=== PATIENT | female | born 1995 | race African-American/Black ===

== ENCOUNTER 2016-09-28 21:23 | Observation (INO) | payer BC ==
[~2016-09-28] VITALS: Ht 165.1 cm; Wt 115.8 kg
[2016-09-28] MEDS ORDERED: IV NORMAL SALINE 1000ML BAG 1,000 ML IV SCH (21:35)
[2016-09-28] MEDS ORDERED: fentaNYL PF VIAL 100 MCG/2 ML VIAL IV PRN (21:45)
[2016-09-28 21:48] LABS: BASO % 0 % (0-3); EOS % 2 % (0-3); HEMATOCRIT 34.6 % (36.0-47.0); HEMOGLOBIN 10.7 g/dL (12.0-15.5); LYMPH # 0.9 x10^3/uL (1.0-4.8); LYMPH % 6 % (24-48); MEAN CORPUSCULAR HEMOGLOBIN 23 pg (25-35); MEAN CORPUSCULAR HGB CONC 31 g/dL (31-37); MEAN CORPUSCULAR VOLUME 75 fL (79-100); MONO % 4 % (0-9); NEUT % 88 % (31-73); PLATELET COUNT 271 x10^3/uL (140-400); RED BLOOD COUNT 4.64 x10^6/uL (3.50-5.40); RED CELL DISTRIBUTION WIDTH 20.4 % (11.5-14.5); WHITE BLOOD COUNT 15.4 x10^3/uL (4.0-11.0)
--- NOTE | 2016-09-28 21:48 | PHYS DOC ---
Past Medical History Past Medical History: No Pertinent History Additional Past Medical Histor: none Past Surgical History: No Surgical History Additional Information: Non smoker Social History Narrative: Visiting from [place], [place] Adult General Chief Complaint Chief Complaint: SYNCOPE HPI HPI Patient is a 21 year old female who presents with abdominal pain and syncopal episode. She is here traveling from [facility] where she drove from on Friday for a in [place]. She noted a little shortness of air yesterday. No fever or cough. No chest pain. Today at 2000 PM she developed abdominal pain. It is in her right lower quadrant. She had 2 episodes of vomiting. Tonight when she was vomiting, she "passed out". She in fact just slid to the floor onto her bottom. Did not strike her head, no loss of consciousness. No injury with resulting from that event. He states it does hurt to breathe. She is on control pills does not smoke tobacco however had recent travel. Review of Systems Review of Systems Constitutional: Denies fever or chills Eyes: Denies change in visual acuity, redness, or eye pain HENT: Denies nasal congestion or sore throat Respiratory: Denies cough but some shortness of breath Cardiovascular: No chest pain; syncopal episode post vomiting. No dizziness. GI: See HPI. No bloody stools or diarrhea : Denies dysuria or hematuria Musculoskeletal: Denies back pain or joint pain. No neck pain. Integument: Denies rash or skin lesions Neurologic: Denies headache, focal weakness or sensory changes. No dizziness, no numbness/tingling or weakness of extremities. Family History Family History Laboratory Tests Test 09/28/16 21:06 09/28/16 21:33 09/28/16 21:47 Bedside Urine HCG, Qualitative Hcg negative White Blood Count 15.4 x10^3/uL Red Blood Count 4.64 x10^6/uL Hemoglobin 10.7 g/dL Hematocrit 34.6 % Mean Corpuscular Volume 75 fL Mean Corpuscular Hemoglobin 23 pg Mean Corpuscular Hemoglobin Concent 31 g/dL Red Cell Distribution Width 20.4 % Platelet Count 271 x10^3/uL Neutrophils (%) (Auto) 88 % Lymphocytes (%) (Auto) 6 % Monocytes (%) (Auto) 4 % Eosinophils (%) (Auto) 2 % Basophils (%) (Auto) 0 % Neutrophils # (Auto) 13.6 x10^3uL Lymphocytes # (Auto) 0.9 x10^3/uL Monocytes # (Auto) 0.7 x10^3/uL Eosinophils # (Auto) 0.2 x10^3/uL Basophils # (Auto) 0.0 x10^3/uL Segmented Neutrophils % 69 % Band Neutrophils % 11 % Lymphocytes % 12 % Monocytes % 5 % Eosinophils % 2 % Basophils % 1 % Platelet Estimate Adequate Hypochromasia Slight Poikilocytosis Slight Anisocytosis Slight Microcytosis Slight Ovalocytes Few D-Dimer (Melissa) 0.29 ug/mlFEU Sodium Level 140 mmol/L Potassium Level 4.2 mmol/L Chloride Level 104 mmol/L Carbon Dioxide Level 26 mmol/L Anion Gap 10 Blood Urea Nitrogen 11 mg/dL Creatinine 1.3 mg/dL Estimated GFR (Cockcroft-Gault) 50.8 BUN/Creatinine Ratio 8 Glucose Level 134 mg/dL Calcium Level 8.8 mg/dL Total Bilirubin 0.2 mg/dL Aspartate Amino Transf (AST/SGOT) 18 U/L Alanine Aminotransferase (ALT/SGPT) 17 U/L Alkaline Phosphatase 81 U/L Creatine Kinase 239 U/L Creatine Kinase MB (Mass) < 0.5 ng/mL Creatine Kinase MB Relative Index 0.2 % Troponin I Quantitative < 0.017 ng/mL Total Protein 7.8 g/dL Albumin 3.2 g/dL Albumin/Globulin Ratio 0.7 Lipase 79 U/L Urine Collection Type Unknown Urine Color Yellow Urine Clarity Clear Urine pH 5.0 Urine Specific [place] 1.020 Urine Protein Negative mg/dL Urine Glucose (UA) Negative mg/dL Urine Ketones (Stick) Negative mg/dL Urine Blood Negative Urine Nitrite Negative Urine Bilirubin Negative Urine Urobilinogen Dipstick 0.2 mg/dL Urine Leukocyte Esterase Small Urine RBC 0 /HPF Urine WBC 1-4 /HPF Urine Squamous Epithelial Cells Few /LPF Urine Bacteria Few /HPF Urine Mucus Marked /LPF Current Medications Medications (Trade) Dose Ordered Sig/Mason Route PRN Reason Start Time Stop Time Status Last Admin Dose Admin Fentanyl Citrate (Fentanyl 2ml Vial) 50 mcg PRN Q15MIN PRN IV PAIN GREATER THAN 3/10 09/28/16 21:45 09/29/16 21:44 09/28/16 22:11 50 MCG Sodium Chloride 1,000 ml @ 1,000 mls/hr Q1H IV 09/28/16 21:35 09/28/16 22:34 DC 09/28/16 22:10 1,000 MLS/HR Ondansetron HCl (Zofran) 4 mg 1X ONCE IV 09/28/16 22:00 09/28/16 22:01 DC 09/28/16 22:10 4 MG Iohexol (Omnipaque 300 Mg/ml) 75 ml 1X ONCE IV 09/28/16 23:00 09/28/16 23:01 DC 09/28/16 22:30 75 ML Info (Do NOT chart on this entry -- for MONITORING) 1 each PRN DAILY PRN MC SEE COMMENTS 09/28/16 22:30 09/30/16 22:29 Current Medications Current Medications Current Medications Medications (Trade) Dose Ordered Sig/Mason Start Time Stop Time Status Last Admin Dose Admin Fentanyl Citrate (Fentanyl 2ml Vial) 50 mcg PRN Q15MIN PRN 09/28/16 21:45 09/29/16 21:44 09/28/16 22:11 50 MCG Info (Do NOT chart on this entry -- for MONITORING) 1 each PRN DAILY PRN 09/28/16 22:30 09/30/16 22:29 Iohexol (Omnipaque 300 Mg/ml) 75 ml 1X ONCE 09/28/16 23:00 09/28/16 23:01 AL 09/28/16 22:30 75 ML Ondansetron HCl (Zofran) 4 mg 1X ONCE 09/28/16 22:00 09/28/16 22:01 AL 09/28/16 22:10 4 MG Sodium Chloride 1,000 ml @ 1,000 mls/hr Q1H 09/28/16 21:35 09/28/16 22:34 AL 09/28/16 22:10 1,000 MLS/HR Allergies Allergies Allergies Coded Allergies Type Severity Reaction Last Updated Verified Penicillins Allergy Intermediate 09/28/16 Yes Physical Exam Physical Exam Constitutional: Well developed, well nourished, no acute distress, non-toxic appearance. HENT: Normocephalic, atraumatic, bilateral external ears normal, oropharynx moist, no oral exudates, nose normal. No injury to scalp. Eyes: PERRLA, EOMI, conjunctiva normal, no discharge. Neck: Normal range of motion, no tenderness, supple, no stridor. Non tender to palpation of cervical spine; no step off or crepitance. Cardiovascular:Heart rate regular rhythm, no murmur Lungs & Thorax: Bilateral breath sounds clear to auscultation Abdomen: Bowel sounds normal, soft, tenderness in right lower quadrant, no masses, no pulsatile masses, no rebound or guarding. Skin: Warm, dry, no erythema, no rash. Back: No tenderness, no CVA tenderness. Extremities: No tenderness, no cyanosis, no clubbing, ROM intact, no edema. Neurologic: Alert and oriented X 3, normal motor function, normal sensory function, no focal deficits noted. Psychologic: Affect normal, judgement normal, mood normal. Current Patient Data Vital Signs Vital Signs Date Time Temp Pulse Resp B/P (MAP) Pulse Ox O2 Delivery O2 Flow Rate FiO2 09/28/16 22:11 20 100 09/28/16 21:37 98.1 92 175/107 (129) Room Air 98.1 Lab Values Laboratory Tests Test 09/28/16 21:06 09/28/16 21:33 09/28/16 21:47 POC Urine HCG, Qualitative Hcg negative (Negative) White Blood Count 15.4 x10^3/uL (4.0-11.0) H Red Blood Count 4.64 x10^6/uL (3.50-5.40) Hemoglobin 10.7 g/dL (12.0-15.5) L Hematocrit 34.6 % (36.0-47.0) L Mean Corpuscular Volume 75 fL (79-100) L Mean Corpuscular Hemoglobin 23 pg (25-35) L Mean Corpuscular Hemoglobin Concent 31 g/dL (31-37) Red Cell Distribution Width 20.4 % (11.5-14.5) H Platelet Count 271 x10^3/uL (140-400) Neutrophils (%) (Auto) 88 % (31-73) H Lymphocytes (%) (Auto) 6 % (24-48) L Monocytes (%) (Auto) 4 % (0-9) Eosinophils (%) (Auto) 2 % (0-3) Basophils (%) (Auto) 0 % (0-3) Neutrophils # (Auto) 13.6 x10^3uL (1.8-7.7) H Lymphocytes # (Auto) 0.9 x10^3/uL (1.0-4.8) L Monocytes # (Auto) 0.7 x10^3/uL (0.0-1.1) Eosinophils # (Auto) 0.2 x10^3/uL (0.0-0.7) Basophils # (Auto) 0.0 x10^3/uL (0.0-0.2) Segmented Neutrophils % 69 % (35-66) H Band Neutrophils % 11 % (0-9) H Lymphocytes % 12 % (24-48) L Monocytes % 5 % (0-10) Eosinophils % 2 % (0-5) Basophils % 1 % (0-3) Platelet Estimate Adequate (ADEQUATE) Hypochromasia Slight Poikilocytosis Slight Anisocytosis Slight Microcytosis Slight Ovalocytes Few D-Dimer (Melissa) 0.29 ug/mlFEU (0.00-0.50) Sodium Level 140 mmol/L (136-145) Potassium Level 4.2 mmol/L (3.5-5.1) Chloride Level 104 mmol/L (98-107) Carbon Dioxide Level 26 mmol/L (21-32) Anion Gap 10 (6-14) Blood Urea Nitrogen 11 mg/dL (7-20) Creatinine 1.3 mg/dL (0.6-1.0) H Estimated GFR (Cockcroft-Gault) 50.8 BUN/Creatinine Ratio 8 (6-20) Glucose Level 134 mg/dL (70-99) H Calcium Level 8.8 mg/dL (8.5-10.1) Total Bilirubin 0.2 mg/dL (0.2-1.0) Aspartate Amino Transferase (AST) 18 U/L (15-37) Alanine Aminotransferase (ALT) 17 U/L (14-59) Alkaline Phosphatase 81 U/L (46-116) Creatine Kinase 239 U/L (26-192) H Creatine Kinase MB (Mass) < 0.5 ng/mL (0.0-3.6) Creatine Kinase MB Relative Index 0.2 % (0-4) Troponin I Quantitative < 0.017 ng/mL (0.000-0.055) Total Protein 7.8 g/dL (6.4-8.2) Albumin 3.2 g/dL (3.4-5.0) L Albumin/Globulin Ratio 0.7 (1.0-1.7) L Lipase 79 U/L (73-393) Urine Collection Type Unknown Urine Color Yellow Urine Clarity Clear Urine pH 5.0 Urine Specific [place] 1.020 Urine Protein Negative mg/dL (NEG-TRACE) Urine Glucose (UA) Negative mg/dL (NEG) Urine Ketones (Stick) Negative mg/dL (NEG) Urine Blood Negative (NEG) Urine Nitrite Negative (NEG) Urine Bilirubin Negative (NEG) Urine Urobilinogen Dipstick 0.2 mg/dL (0.2 mg/dL) Urine Leukocyte Esterase Small (NEG) Urine RBC 0 /HPF (0-2) Urine WBC 1-4 /HPF (0-4) Urine Squamous Epithelial Cells Few /LPF Urine Bacteria Few /HPF (0-FEW) Urine Mucus Marked /LPF Laboratory Tests 09/28/16 21:33 Laboratory Tests 09/28/16 21:33 EKG EKG EKG interpreted by myself. Normal sinus rhythm, heart rate 96. No acute ST elevation. Nonspecific ST changes. Normal axis. Some artifact noted. Radiology/Procedures Radiology/Procedures [facility] [address] [place] [address] IMAGING REPORT Signed PATIENT: KRISTIE CONTRERAS ACCOUNT: [id number] : 1995 LOCATION: ER AGE: 21 SEX: F EXAM STATUS: REG ER ORD. PHYSICIAN: JAMES OLIVARES MD REASON: rlq abd pain w elev wbc and vomiting PROCEDURE: CT ABD PELV W/ IV CONTRST ONLY PQRS Compliance Statement: One or more of the following individualized dose reduction techniques were utilized for this examination: 1. Automated exposure control 2. Adjustment of the mA and/or kV according to patient size 3. Use of iterative reconstruction technique CT ABD PELV W/ IV CONTRST ONLY Clinical Indication: RLQ ABD PAIN, W ELEV WBC AND VOMITING, Comparison: None. Technique: Helical CT imaging of the abdomen and pelvis is performed after 75 cc Omnipaque 300 IV contrast. Oral contrast not given. Findings: Lung bases clear. Cardiac size normal. Liver, gallbladder, spleen, pancreas, adrenal glands, and abdominal aorta caliber are normal. Kidneys enhance symmetrically without hydronephrosis. Evaluation of bowel may be limited without oral contrast. No obvious abnormality of the stomach. No dilated small bowel. The appendix is normal. No colon wall thickening. There are a few subcentimeter pericecal lymph nodes. There is no adenopathy. There are subcentimeter retroperitoneal and mesenteric lymph nodes. Urinary bladder is normal. Uterus unremarkable. Ovaries symmetric in size. No pelvic free fluid. Bilateral inguinal lymph nodes may be reactive. No acute bone abnormality. IMPRESSION: No acute abdominal or pelvic abnormality. Electronically signed by: Taty Shields MD (09/28/2016 11:13 PM) [facility] [place] DICTATED and SIGNED BY: TATY SHIELDS MD DATE: 09/28/162306 CC: JAMES OLIVARES MD; UNKNOWN PCP NAME ~ Course & Med Decision Making Course & Med Decision Making Pertinent Labs and Imaging studies reviewed. (See chart for details) My differential for abdominal pain includes but is not limited to appendicitis; cholelithiasis or cholecystitis; renal stones; ureterolithiasis; pancreatitis; urinary tract infection; bowel obstruction; irritable bowel. Ectopic , intrauterine . Evaluated patient upon arrival. Syncope is probably vasovagal from vomiting event just prior. SOA is a concern as she has recent travel and is on BCP. Checking D dimer as screening test. PERC Criteria Assessment: Age > 50: No HR > 100: No 02 < 95%: No H/o DVT/PE: No Recent trauma/surgery: No Hemoptysis No Exogenous Estrogen: YES Unilateral Leg swelling: No Pretest probability > 15%: No Due to travel and estrogen use will check d dimer. At 2205 PM: D dimer negative. CT abd/pelvis ordered; WBC elevated. AT 2330 pm: CT negative however patient has focal RLQ pain and elev WBC. Pain however just started at [address] Riddle (discussed and accepted admission at 2335 PM) for obsv; keep NPO and requested surgery consult. Dr. Wright contacted at 2345 PM. and accepted patient-no antibiotics per Dr Wright. Will repeat CBC in am. Patient and family updated. I have spoken with the patient and/or caregivers. I have explained the patient' s condition, diagnosis and treatment plan based on the information available to me at this time. I have answered the patient's and/or caregiver's questions and addressed any concerns. The patient and/or caregivers have as good an understanding of the patient's diagnosis, condition and treatment plan as can be expected at this point. The patient has been stabilized within the capability of the emergency department. The patient will be transported for further care and management or will be moved to an observation or inpatient service. I have communicated with the staff or medical practitioner taking over this patient's care. Dragon Disclaimer Dragon Disclaimer This electronic medical record was generated, in whole or in part, using a voice recognition dictation system. Departure Departure Impression: Primary Impression: Abdominal pain Additional Impressions: Elevated WBC count Nausea & vomiting Disposition: ADMITTED INPATIENT Admitting Physician: Jackie Riddle Condition: STABLE Problem Qualifiers JAMES OLIVARES MD Sep 28, 2016 21:48
[2016-09-28 21:56] LABS: CALCIUM 8.8 mg/dL (8.5-10.1); CREATININE 1.3 mg/dL (0.6-1.0); GFR 50.8; POTASSIUM 4.2 mmol/L (3.5-5.1)
[2016-09-28] MEDS ORDERED: ONDANSETRON PF 4 MG/2 ML VIAL. IV ONE (22:00)
[2016-09-28 22:05] LABS: BILIRUBIN,URINE NEGATIVE (NEG); GLUCOSE,URINE NEGATIVE (NEG); NITRITE,URINE NEGATIVE (NEG); PROTEIN,URINE NEGATIVE (NEG-TRACE); UROBILINOGEN,URINE 0.2 mg/dL (0.2 mg/dL)
[2016-09-28 22:11] LABS: ALBUMIN 3.2 g/dL (3.4-5.0); ALBUMIN/GLOBULIN RATIO 0.7 (1.0-1.7); TOTAL BILIRUBIN 0.2 mg/dL (0.2-1.0); TOTAL PROTEIN 7.8 g/dL (6.4-8.2)
[2016-09-28 22:19] LABS: BACTERIA,URINE FEW /HPF (0-FEW); RBC,URINE 0 /HPF (0-2); SQUAMOUS EPITHELIAL CELL,UR FEW /LPF
[2016-09-28 22:23] LABS: CKMB MASS < 0.5 ng/mL (0.0-3.6); CREATINE KINASE 239 U/L (26-192)
[2016-09-28] MEDS ORDERED: CONTRAST GIVEN MC PRN (22:30)
[2016-09-28 22:32] LABS: % BASOS 1 % (0-3); % EOS 2 % (0-5); ANISOCYTOSIS SLIGHT; HYPOCHROMIA SLIGHT; MICROCYTOSIS SLIGHT; PLT ESTIMATE ADEQUATE (ADEQUATE); POIKILOCYTOSIS SLIGHT
[2016-09-28 22:33] LABS: OVALOCYTES FEW
[2016-09-28] MEDS ORDERED: IOHEXOL 300 MG/ML 75 ML VIAL IV ONE (23:00)
--- NOTE | 2016-09-28 23:16 | RAD ---
PQRS Compliance Statement: One or more of the following individualized dose reduction techniques were utilized for this examination: 1. Automated exposure control 2. Adjustment of the mA and/or kV according to patient size 3. Use of iterative reconstruction technique CT ABD PELV W/ IV CONTRST ONLY Clinical Indication: RLQ ABD PAIN, W ELEV WBC AND VOMITING, Comparison: None. Technique: Helical CT imaging of the abdomen and pelvis is performed after 75 cc Omnipaque 300 IV contrast. Oral contrast not given. Findings: Lung bases clear. Cardiac size normal. Liver, gallbladder, spleen, pancreas, adrenal glands, and abdominal aorta caliber are normal. Kidneys enhance symmetrically without hydronephrosis. Evaluation of bowel may be limited without oral contrast. No obvious abnormality of the stomach. No dilated small bowel. The appendix is normal. No colon wall thickening. There are a few subcentimeter pericecal lymph nodes. There is no adenopathy. There are subcentimeter retroperitoneal and mesenteric lymph nodes. Urinary bladder is normal. Uterus unremarkable. Ovaries symmetric in size. No pelvic free fluid. Bilateral inguinal lymph nodes may be reactive. No acute bone abnormality. IMPRESSION: No acute abdominal or pelvic abnormality. Electronically signed by: Bogdan Shields MD (09/28/2016 11:13 PM) [facility]
[2016-09-29] VITALS (8 sets, daily range): BP systolic 93–131; BP diastolic 43–70
[2016-09-29] MEDS: MORPHINE SULFATE 2 MG/ML DISP.SYRIN. IV PRN ×2 (00:56→07:24)
--- NOTE | 2016-09-29 05:47 | EKG ---
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
[2016-09-29 06:08] LABS: BASO % 0 % (0-3); EOS % 2 % (0-3); HEMATOCRIT 30.6 % (36.0-47.0); HEMOGLOBIN 9.5 g/dL (12.0-15.5); LYMPH # 1.7 x10^3/uL (1.0-4.8); LYMPH % 15 % (24-48); MEAN CORPUSCULAR HEMOGLOBIN 23 pg (25-35); MEAN CORPUSCULAR HGB CONC 31 g/dL (31-37); MEAN CORPUSCULAR VOLUME 75 fL (79-100); MONO % 6 % (0-9); NEUT % 78 % (31-73); PLATELET COUNT 251 x10^3/uL (140-400); RED CELL DISTRIBUTION WIDTH 20.6 % (11.5-14.5); WHITE BLOOD COUNT 11.2 x10^3/uL (4.0-11.0)
--- NOTE | 2016-09-29 09:23 | PDOC2 ---
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 Had [employer] for breakfast yesterday. Last evening ordered pizza, however the smell made her nauseated and did not eat. Had a small bowel of cereal, developed RLQ pain and episodes of vomiting that lasted 15 mins, she became lightheaded and had a syncopal episode. This AM no further emesis, however continues to have unchanged RLQ pain. Denies any similar symptoms in past, no constipation or diarrhea. No sick contacts. Past Medical History Past Medical History no pertinent hx Renal/: Other (Hx of irregular menses- on BC pills) Past Surgical History Past Surgical History: No pertinent history Family History Family History: Cancer Social History No ALCOHOL: social Drugs: None Lives: Alone Current Problem List Problem List Problems Medical Problems: (1) Abdominal pain Status: Acute (2) Elevated WBC count Status: Acute (3) Nausea & vomiting Status: Acute Current Medications Current Medications Current Medications Fentanyl Citrate (Fentanyl 2ml Vial) 50 mcg PRN Q15MIN PRN IV PAIN GREATER THAN 3/10 Last administered on 09/28/16 22:11; Start 09/28/16 at 21:45; Stop 09/29 at 07:32; Status DC Sodium Chloride 1,000 ml @ 1,000 mls/hr Q1H IV Last administered on 09/28/16 22:10; Start 09/28/16 at 21:35; Stop 09/28/16 at 22:34; Status DC Ondansetron HCl (Zofran) 4 mg 1X ONCE IV Last administered on 09/28/16 22:10; Start 09/28/16 at 22:00; Stop 09/29/16 at 07:32; Status DC Iohexol (Omnipaque 300 Mg/ml) 75 ml 1X ONCE IV Last administered on 09/28/16 22:30; Start 09/28/16 at 23:00; Stop 09/28/16 at 23:01; Status DC Info (Do NOT chart on this entry -- for MONITORING) 1 each PRN DAILY PRN MC SEE COMMENTS; Start 09/28/16 at 22:30; Stop 09/30/16 at 22:29 Ondansetron HCl (Zofran) 4 mg PRN Q8HRS PRN IV NAUSEA/VOMITING; Start 09/29/16 at 00:00; Stop 09/29/16 at 23:59 Morphine Sulfate 2 mg PRN Q2HR PRN IV SEVERE PAIN Last administered on t 07:24; Start 09/29/16 at 00:00; Stop 09/29/16 at 23:59 Allergies Allergies: Coded Allergies: Penicillins (Verified Allergy, Intermediate, 09/28/16) ROS General: YES: Chills, No: Other (fevers) PSYCHOLOGICAL ROS: No: Anxiety, Depression Eyes: No Blurry vision, No Double vision HEENT: No: Heacaches, Sore Throat Hematological and Lymphatic: No: Bleeding Problems, Blood Clots Respiratory: YES: Shortness of breath (intermittently ongoing period of time), No: Cough Cardiovascular: No Chest Pain, No Palpitations Gastrointestinal: Yes Other (see hpi) Genitourinary: YES Other (has been over 2 years since last pap), No Dysuria, No Discharge Musculoskeletal: No Joint Pain, No Muscle Pain Neurological: No Confusion, No Numbness/Tingling Skin: No Pruritus, No Rash Physical Exam General: Alert, Oriented X3, Cooperative, No acute distress HEENT: PERRLA, Mucous membr. moist/pink Lungs: Clear to auscultation, Normal air movement Heart: Regular rate, Normal S1, Normal S2 Abdomen: Soft, Other (ND, obese abdomen, exquisite tenderness to RLQ, no rebound) Extremities: No clubbing, No cyanosis Skin: No rashes, No breakdown Neuro: Normal gait, Normal speech Psych/Mental Status: Mental status NL, Mood NL MUSCULOSKELETAL: No deformity, No swelling Vitals VITALS Vital Signs Date Time Temp Pulse Resp B/P (MAP) Pulse Ox O2 Delivery O2 Flow Rate FiO2 09/29/16 07:40 96.6 66 20 121/70 (87) 95 Room Air 96.6 Labs Labs Laboratory Tests Test 09/28/16 21:06 09/28/16 21:33 09/28/16 21:47 09/29/16 05:30 Bedside Urine HCG, Qualitative Hcg negative (Negative) White Blood Count 15.4 x10^3/uL (4.0-11.0) 11.2 x10^3/uL (4.0-11.0) Red Blood Count 4.64 x10^6/uL (3.50-5.40) 4.10 x10^6/uL (3.50-5.40) Hemoglobin 10.7 g/dL (12.0-15.5) 9.5 g/dL (12.0-15.5) Hematocrit 34.6 % (36.0-47.0) 30.6 % (36.0-47.0) Mean Corpuscular Volume 75 fL (79-100) 75 fL (79-100) Mean Corpuscular Hemoglobin 23 pg (25-35) 23 pg (25-35) Mean Corpuscular Hemoglobin Concent 31 g/dL (31-37) 31 g/dL (31-37) Red Cell Distribution Width 20.4 % (11.5-14.5) 20.6 % (11.5-14.5) Platelet Count 271 x10^3/uL (140-400) 251 x10^3/uL (140-400) Neutrophils (%) (Auto) 88 % (31-73) 78 % (31-73) Lymphocytes (%) (Auto) 6 % (24-48) 15 % (24-48) Monocytes (%) (Auto) 4 % (0-9) 6 % (0-9) Eosinophils (%) (Auto) 2 % (0-3) 2 % (0-3) Basophils (%) (Auto) 0 % (0-3) 0 % (0-3) Neutrophils # (Auto) 13.6 x10^3uL (1.8-7.7) 8.7 x10^3uL (1.8-7.7) Lymphocytes # (Auto) 0.9 x10^3/uL (1.0-4.8) 1.7 x10^3/uL (1.0-4.8) Monocytes # (Auto) 0.7 x10^3/uL (0.0-1.1) 0.6 x10^3/uL (0.0-1.1) Eosinophils # (Auto) 0.2 x10^3/uL (0.0-0.7) 0.2 x10^3/uL (0.0-0.7) Basophils # (Auto) 0.0 x10^3/uL (0.0-0.2) 0.0 x10^3/uL (0.0-0.2) Segmented Neutrophils % 69 % (35-66) Band Neutrophils % 11 % (0-9) Lymphocytes % 12 % (24-48) Monocytes % 5 % (0-10) Eosinophils % 2 % (0-5) Basophils % 1 % (0-3) Platelet Estimate Adequate (ADEQUATE) Hypochromasia Slight Poikilocytosis Slight Anisocytosis Slight Microcytosis Slight Ovalocytes Few D-Dimer (Melissa) 0.29 ug/mlFEU (0.00-0.50) Sodium Level 140 mmol/L (136-145) Potassium Level 4.2 mmol/L (3.5-5.1) Chloride Level 104 mmol/L (98-107) Carbon Dioxide Level 26 mmol/L (21-32) Anion Gap 10 (6-14) Blood Urea Nitrogen 11 mg/dL (7-20) Creatinine 1.3 mg/dL (0.6-1.0) Estimated GFR (Cockcroft-Gault) 50.8 BUN/Creatinine Ratio 8 (6-20) Glucose Level 134 mg/dL (70-99) Calcium Level 8.8 mg/dL (8.5-10.1) Total Bilirubin 0.2 mg/dL (0.2-1.0) Aspartate Amino Transf (AST/SGOT) 18 U/L (15-37) Alanine Aminotransferase (ALT/SGPT) 17 U/L (14-59) Alkaline Phosphatase 81 U/L (46-116) Creatine Kinase 239 U/L (26-192) Creatine Kinase MB (Mass) < 0.5 ng/mL (0.0-3.6) Creatine Kinase MB Relative Index 0.2 % (0-4) Troponin I Quantitative < 0.017 ng/mL (0.000-0.055) Total Protein 7.8 g/dL (6.4-8.2) Albumin 3.2 g/dL (3.4-5.0) Albumin/Globulin Ratio 0.7 (1.0-1.7) Lipase 79 U/L (73-393) Urine Collection Type Unknown Urine Color Yellow Urine Clarity Clear Urine pH 5.0 Urine Specific [place] 1.020 Urine Protein Negative mg/dL (NEG-TRACE) Urine Glucose (UA) Negative mg/dL (NEG) Urine Ketones (Stick) Negative mg/dL (NEG) Urine Blood Negative (NEG) Urine Nitrite Negative (NEG) Urine Bilirubin Negative (NEG) Urine Urobilinogen Dipstick 0.2 mg/dL (0.2 mg/dL) Urine Leukocyte Esterase Small (NEG) Urine RBC 0 /HPF (0-2) Urine WBC 1-4 /HPF (0-4) Urine Squamous Epithelial Cells Few /LPF Urine Bacteria Few /HPF (0-FEW) Urine Mucus Marked /LPF Laboratory Tests Test 09/28/16 21:06 09/28/16 21:33 09/28/16 21:47 09/29/16 05:30 Bedside Urine HCG, Qualitative Hcg negative (Negative) White Blood Count 15.4 x10^3/uL (4.0-11.0) 11.2 x10^3/uL (4.0-11.0) Red Blood Count 4.64 x10^6/uL (3.50-5.40) 4.10 x10^6/uL (3.50-5.40) Hemoglobin 10.7 g/dL (12.0-15.5) 9.5 g/dL (12.0-15.5) Hematocrit 34.6 % (36.0-47.0) 30.6 % (36.0-47.0) Mean Corpuscular Volume 75 fL (79-100) 75 fL (79-100) Mean Corpuscular Hemoglobin 23 pg (25-35) 23 pg (25-35) Mean Corpuscular Hemoglobin Concent 31 g/dL (31-37) 31 g/dL (31-37) Red Cell Distribution Width 20.4 % (11.5-14.5) 20.6 % (11.5-14.5) Platelet Count 271 x10^3/uL (140-400) 251 x10^3/uL (140-400) Neutrophils (%) (Auto) 88 % (31-73) 78 % (31-73) Lymphocytes (%) (Auto) 6 % (24-48) 15 % (24-48) Monocytes (%) (Auto) 4 % (0-9) 6 % (0-9) Eosinophils (%) (Auto) 2 % (0-3) 2 % (0-3) Basophils (%) (Auto) 0 % (0-3) 0 % (0-3) Neutrophils # (Auto) 13.6 x10^3uL (1.8-7.7) 8.7 x10^3uL (1.8-7.7) Lymphocytes # (Auto) 0.9 x10^3/uL (1.0-4.8) 1.7 x10^3/uL (1.0-4.8) Monocytes # (Auto) 0.7 x10^3/uL (0.0-1.1) 0.6 x10^3/uL (0.0-1.1) Eosinophils # (Auto) 0.2 x10^3/uL (0.0-0.7) 0.2 x10^3/uL (0.0-0.7) Basophils # (Auto) 0.0 x10^3/uL (0.0-0.2) 0.0 x10^3/uL (0.0-0.2) Segmented Neutrophils % 69 % (35-66) Band Neutrophils % 11 % (0-9) Lymphocytes % 12 % (24-48) Monocytes % 5 % (0-10) Eosinophils % 2 % (0-5) Basophils % 1 % (0-3) Platelet Estimate Adequate (ADEQUATE) Hypochromasia Slight Poikilocytosis Slight Anisocytosis Slight Microcytosis Slight Ovalocytes Few D-Dimer (Melissa) 0.29 ug/mlFEU (0.00-0.50) Sodium Level 140 mmol/L (136-145) Potassium Level 4.2 mmol/L (3.5-5.1) Chloride Level 104 mmol/L (98-107) Carbon Dioxide Level 26 mmol/L (21-32) Anion Gap 10 (6-14) Blood Urea Nitrogen 11 mg/dL (7-20) Creatinine 1.3 mg/dL (0.6-1.0) Estimated GFR (Cockcroft-Gault) 50.8 BUN/Creatinine Ratio 8 (6-20) Glucose Level 134 mg/dL (70-99) Calcium Level 8.8 mg/dL (8.5-10.1) Total Bilirubin 0.2 mg/dL (0.2-1.0) Aspartate Amino Transf (AST/SGOT) 18 U/L (15-37) Alanine Aminotransferase (ALT/SGPT) 17 U/L (14-59) Alkaline Phosphatase 81 U/L (46-116) Creatine Kinase 239 U/L (26-192) Creatine Kinase MB (Mass) < 0.5 ng/mL (0.0-3.6) Creatine Kinase MB Relative Index 0.2 % (0-4) Troponin I Quantitative < 0.017 ng/mL (0.000-0.055) Total Protein 7.8 g/dL (6.4-8.2) Albumin 3.2 g/dL (3.4-5.0) Albumin/Globulin Ratio 0.7 (1.0-1.7) Lipase 79 U/L (73-393) Urine Collection Type Unknown Urine Color Yellow Urine Clarity Clear Urine pH 5.0 Urine Specific [place] 1.020 Urine Protein Negative mg/dL (NEG-TRACE) Urine Glucose (UA) Negative mg/dL (NEG) Urine Ketones (Stick) Negative mg/dL (NEG) Urine Blood Negative (NEG) Urine Nitrite Negative (NEG) Urine Bilirubin Negative (NEG) Urine Urobilinogen Dipstick 0.2 mg/dL (0.2 mg/dL) Urine Leukocyte Esterase Small (NEG) Urine RBC 0 /HPF (0-2) Urine WBC 1-4 /HPF (0-4) Urine Squamous Epithelial Cells Few /LPF Urine Bacteria Few /HPF (0-FEW) Urine Mucus Marked /LPF Assessment/Plan Assessment/Plan RLQ Pain normal appearing CT--no acute findings of appendix/ovaries WBC down to 11.2 continued pain, focal RLQ keep NPO, will review with SONY Chapman MD 09/29/16 1248: CONSULT Allergies Allergies: Coded Allergies: Penicillins (Verified Allergy, Intermediate, 09/28/16) Assessment/Plan Assessment/Plan Pt seen and examined by myself; history as above, syncopal episode, now with RLQ pain, states pain maybe a bit better today than yesterday, but receiving pain meds; hungry; PMH/PSH/ROS/SH as above; exam, alert, oriented, no acute distress, no scleral icterus, no neck masses, lungs clear, heart RR and R, abdomen morbidly obese, soft, tender RLQ, no masses, ext neg for edema, no rashes; CT and labs reviewed; A/P) RLQ pain, initial elevation of WBC, but improved; CT normal without findings of appendicitis or other pathology; do not recommend surgery at this time, will continue observation, serial exam/ labs. Laparoscopy remains an option if condition worsens. MARTIN CAVAZOS APRN Sep 29, 2016 09:23 SONY LOZANO MD Sep 29, 2016 12:48
[2016-09-29] MEDS ORDERED: hydrALAZINE 20 MG/ML VIAL. IVP PRN (11:45)
[2016-09-29] MEDS ORDERED: ONDANSETRON PF 4 MG/2 ML VIAL. IV PRN ×2 (11:45)
[2016-09-29] MEDS ORDERED: ACETAMINOPHEN 325 MG TABLET. PO PRN (11:45)
[2016-09-29] MEDS ORDERED: DOCUSATE SODIUM 100 MG CAPSULE. PO PRN (11:45)
[2016-09-29] MEDS ORDERED: MORPHINE SULFATE 2 MG/ML DISP.SYRIN. IV PRN (11:45)
[2016-09-29] MEDS ORDERED: traMADol 50 MG TABLET PO PRN (11:45)
--- NOTE | 2016-09-29 11:49 | PDOC1 ---
History and Physical Date of Admission Date of Admission 09/29/16 Identification/Chief Complaint Chief Complaint RLQ pain Problems: Source Source: Caregiver, Chart review, Patient History of Present Illness History of Present Illness HPI Patient is a 21 year old female who presents with abdominal pain and syncopal episode. Pt and her mother drove from [place], [place] TO VISIT here. They were in the hotel. PT SAID she ate some cereal then feels N/V, RLQ pain, 8/10, constant, never had before, no radiation, felt cold, no fever, cough ,sob, dysuria. She sat on the seat, then syncoped as per her Aunt, to the floor onto her bottom. She did feel some vertigo. No injury with resulting from that event. He states it does hurt to breathe. She is on control pills does not smoke tobacco however had recent travel. wbc 15, CT neg. Past Medical History Past Medical History none Renal/: Other (Hx of irregular menses- on BC pills) Past Surgical History Past Surgical History: No pertinent history Family History Family History: Cancer Social History Smoke: No ALCOHOL: social Drugs: None Current Problem List Problem List Problems Medical Problems: (1) Abdominal pain Status: Acute (2) Elevated WBC count Status: Acute (3) Nausea & vomiting Status: Acute Current Medications Current Medications Current Medications Medications (Trade) Dose Ordered Sig/Mason Start Time Stop Time Status Last Admin Dose Admin Fentanyl Citrate (Fentanyl 2ml Vial) 50 mcg PRN Q15MIN PRN 09/28/16 21:45 09/29/16 07:32 DC 09/28/16 22:11 50 MCG Info (Do NOT chart on this entry -- for MONITORING) 1 each PRN DAILY PRN 09/28/16 22:30 09/30/16 22:29 Iohexol (Omnipaque 300 Mg/ml) 75 ml 1X ONCE 09/28/16 23:00 09/28/16 23:01 DC 09/28/16 22:30 75 ML Morphine Sulfate 2 mg PRN Q2HR PRN 09/29/16 00:00 09/29/16 23:59 09/29/16 07:24 2 MG Ondansetron HCl (Zofran) 4 mg PRN Q8HRS PRN 09/29/16 00:00 09/29/16 23:59 Sodium Chloride 1,000 ml @ 1,000 mls/hr Q1H 09/28/16 21:35 09/28/16 22:34 DC 09/28/16 22:10 1,000 MLS/HR Allergies Allergies Allergies Coded Allergies Type Severity Reaction Last Updated Verified Penicillins Allergy Intermediate 09/28/16 Yes ROS Review of System CONSTITUTIONAL: No fever or chills EYES: No recent changes SKIN: No rash or itching CARDIOVASCULAR: No chest pain, syncope, palpitations, or edema RESPIRATORY: No SOB or cough GASTROINTESTINAL: No nausea, vomiting or abdominal pain NEUROLOGICAL: No headaches or weakness ENDOCRINE: No cold or heat intolerance GENITOURINARY: No urgency or frequency of urination MUSCULOSKELETAL: No back pain or joint pain LYMPHATICS: No enlarged lymph nodes PSYCHIATRIC: No anxiety or depression Physical Exam Physical Exam GEN.: No apparent distress. Alert and oriented. HEENT: Head is normocephalic, atraumatic NECK: Supple. LUNGS: Clear to auscultation. HEART: RRR, S1, S2 present. Peripheral pulses intact ABDOMEN: Soft, Positive bowel sounds. severe RLQ tendereness, no guarding. EXTREMITIES: Without any cyanosis. NEUROLOGIC: Normal speech, normal tone PSYCHIATRIC: Normal affect, normal mood. SKIN: No ulcerations Vitals Vitals Vital Signs Date Time Temp Pulse Resp B/P (MAP) Pulse Ox O2 Delivery O2 Flow Rate FiO2 09/29/16 07:40 96.6 66 20 121/70 (87) 95 Room Air 96.6 Labs Labs Laboratory Tests Test 09/28/16 21:06 09/28/16 21:33 09/28/16 21:47 09/29/16 05:30 Bedside Urine HCG, Qualitative Hcg negative (Negative) White Blood Count 15.4 x10^3/uL (4.0-11.0) 11.2 x10^3/uL (4.0-11.0) Red Blood Count 4.64 x10^6/uL (3.50-5.40) 4.10 x10^6/uL (3.50-5.40) Hemoglobin 10.7 g/dL (12.0-15.5) 9.5 g/dL (12.0-15.5) Hematocrit 34.6 % (36.0-47.0) 30.6 % (36.0-47.0) Mean Corpuscular Volume 75 fL (79-100) 75 fL (79-100) Mean Corpuscular Hemoglobin 23 pg (25-35) 23 pg (25-35) Mean Corpuscular Hemoglobin Concent 31 g/dL (31-37) 31 g/dL (31-37) Red Cell Distribution Width 20.4 % (11.5-14.5) 20.6 % (11.5-14.5) Platelet Count 271 x10^3/uL (140-400) 251 x10^3/uL (140-400) Neutrophils (%) (Auto) 88 % (31-73) 78 % (31-73) Lymphocytes (%) (Auto) 6 % (24-48) 15 % (24-48) Monocytes (%) (Auto) 4 % (0-9) 6 % (0-9) Eosinophils (%) (Auto) 2 % (0-3) 2 % (0-3) Basophils (%) (Auto) 0 % (0-3) 0 % (0-3) Neutrophils # (Auto) 13.6 x10^3uL (1.8-7.7) 8.7 x10^3uL (1.8-7.7) Lymphocytes # (Auto) 0.9 x10^3/uL (1.0-4.8) 1.7 x10^3/uL (1.0-4.8) Monocytes # (Auto) 0.7 x10^3/uL (0.0-1.1) 0.6 x10^3/uL (0.0-1.1) Eosinophils # (Auto) 0.2 x10^3/uL (0.0-0.7) 0.2 x10^3/uL (0.0-0.7) Basophils # (Auto) 0.0 x10^3/uL (0.0-0.2) 0.0 x10^3/uL (0.0-0.2) Segmented Neutrophils % 69 % (35-66) Band Neutrophils % 11 % (0-9) Lymphocytes % 12 % (24-48) Monocytes % 5 % (0-10) Eosinophils % 2 % (0-5) Basophils % 1 % (0-3) Platelet Estimate Adequate (ADEQUATE) Hypochromasia Slight Poikilocytosis Slight Anisocytosis Slight Microcytosis Slight Ovalocytes Few D-Dimer (Melissa) 0.29 ug/mlFEU (0.00-0.50) Sodium Level 140 mmol/L (136-145) Potassium Level 4.2 mmol/L (3.5-5.1) Chloride Level 104 mmol/L (98-107) Carbon Dioxide Level 26 mmol/L (21-32) Anion Gap 10 (6-14) Blood Urea Nitrogen 11 mg/dL (7-20) Creatinine 1.3 mg/dL (0.6-1.0) Estimated GFR (Cockcroft-Gault) 50.8 BUN/Creatinine Ratio 8 (6-20) Glucose Level 134 mg/dL (70-99) Calcium Level 8.8 mg/dL (8.5-10.1) Total Bilirubin 0.2 mg/dL (0.2-1.0) Aspartate Amino Transf (AST/SGOT) 18 U/L (15-37) Alanine Aminotransferase (ALT/SGPT) 17 U/L (14-59) Alkaline Phosphatase 81 U/L (46-116) Creatine Kinase 239 U/L (26-192) Creatine Kinase MB (Mass) < 0.5 ng/mL (0.0-3.6) Creatine Kinase MB Relative Index 0.2 % (0-4) Troponin I Quantitative < 0.017 ng/mL (0.000-0.055) Total Protein 7.8 g/dL (6.4-8.2) Albumin 3.2 g/dL (3.4-5.0) Albumin/Globulin Ratio 0.7 (1.0-1.7) Lipase 79 U/L (73-393) Urine Collection Type Unknown Urine Color Yellow Urine Clarity Clear Urine pH 5.0 Urine Specific [place] 1.020 Urine Protein Negative mg/dL (NEG-TRACE) Urine Glucose (UA) Negative mg/dL (NEG) Urine Ketones (Stick) Negative mg/dL (NEG) Urine Blood Negative (NEG) Urine Nitrite Negative (NEG) Urine Bilirubin Negative (NEG) Urine Urobilinogen Dipstick 0.2 mg/dL (0.2 mg/dL) Urine Leukocyte Esterase Small (NEG) Urine RBC 0 /HPF (0-2) Urine WBC 1-4 /HPF (0-4) Urine Squamous Epithelial Cells Few /LPF Urine Bacteria Few /HPF (0-FEW) Urine Mucus Marked /LPF Laboratory Tests Test 09/28/16 21:06 09/28/16 21:33 09/28/16 21:47 09/29/16 05:30 Bedside Urine HCG, Qualitative Hcg negative (Negative) White Blood Count 15.4 x10^3/uL (4.0-11.0) 11.2 x10^3/uL (4.0-11.0) Red Blood Count 4.64 x10^6/uL (3.50-5.40) 4.10 x10^6/uL (3.50-5.40) Hemoglobin 10.7 g/dL (12.0-15.5) 9.5 g/dL (12.0-15.5) Hematocrit 34.6 % (36.0-47.0) 30.6 % (36.0-47.0) Mean Corpuscular Volume 75 fL (79-100) 75 fL (79-100) Mean Corpuscular Hemoglobin 23 pg (25-35) 23 pg (25-35) Mean Corpuscular Hemoglobin Concent 31 g/dL (31-37) 31 g/dL (31-37) Red Cell Distribution Width 20.4 % (11.5-14.5) 20.6 % (11.5-14.5) Platelet Count 271 x10^3/uL (140-400) 251 x10^3/uL (140-400) Neutrophils (%) (Auto) 88 % (31-73) 78 % (31-73) Lymphocytes (%) (Auto) 6 % (24-48) 15 % (24-48) Monocytes (%) (Auto) 4 % (0-9) 6 % (0-9) Eosinophils (%) (Auto) 2 % (0-3) 2 % (0-3) Basophils (%) (Auto) 0 % (0-3) 0 % (0-3) Neutrophils # (Auto) 13.6 x10^3uL (1.8-7.7) 8.7 x10^3uL (1.8-7.7) Lymphocytes # (Auto) 0.9 x10^3/uL (1.0-4.8) 1.7 x10^3/uL (1.0-4.8) Monocytes # (Auto) 0.7 x10^3/uL (0.0-1.1) 0.6 x10^3/uL (0.0-1.1) Eosinophils # (Auto) 0.2 x10^3/uL (0.0-0.7) 0.2 x10^3/uL (0.0-0.7) Basophils # (Auto) 0.0 x10^3/uL (0.0-0.2) 0.0 x10^3/uL (0.0-0.2) Segmented Neutrophils % 69 % (35-66) Band Neutrophils % 11 % (0-9) Lymphocytes % 12 % (24-48) Monocytes % 5 % (0-10) Eosinophils % 2 % (0-5) Basophils % 1 % (0-3) Platelet Estimate Adequate (ADEQUATE) Hypochromasia Slight Poikilocytosis Slight Anisocytosis Slight Microcytosis Slight Ovalocytes Few D-Dimer (Melissa) 0.29 ug/mlFEU (0.00-0.50) Sodium Level 140 mmol/L (136-145) Potassium Level 4.2 mmol/L (3.5-5.1) Chloride Level 104 mmol/L (98-107) Carbon Dioxide Level 26 mmol/L (21-32) Anion Gap 10 (6-14) Blood Urea Nitrogen 11 mg/dL (7-20) Creatinine 1.3 mg/dL (0.6-1.0) Estimated GFR (Cockcroft-Gault) 50.8 BUN/Creatinine Ratio 8 (6-20) Glucose Level 134 mg/dL (70-99) Calcium Level 8.8 mg/dL (8.5-10.1) Total Bilirubin 0.2 mg/dL (0.2-1.0) Aspartate Amino Transf (AST/SGOT) 18 U/L (15-37) Alanine Aminotransferase (ALT/SGPT) 17 U/L (14-59) Alkaline Phosphatase 81 U/L (46-116) Creatine Kinase 239 U/L (26-192) Creatine Kinase MB (Mass) < 0.5 ng/mL (0.0-3.6) Creatine Kinase MB Relative Index 0.2 % (0-4) Troponin I Quantitative < 0.017 ng/mL (0.000-0.055) Total Protein 7.8 g/dL (6.4-8.2) Albumin 3.2 g/dL (3.4-5.0) Albumin/Globulin Ratio 0.7 (1.0-1.7) Lipase 79 U/L (73-393) Urine Collection Type Unknown Urine Color Yellow Urine Clarity Clear Urine pH 5.0 Urine Specific [place] 1.020 Urine Protein Negative mg/dL (NEG-TRACE) Urine Glucose (UA) Negative mg/dL (NEG) Urine Ketones (Stick) Negative mg/dL (NEG) Urine Blood Negative (NEG) Urine Nitrite Negative (NEG) Urine Bilirubin Negative (NEG) Urine Urobilinogen Dipstick 0.2 mg/dL (0.2 mg/dL) Urine Leukocyte Esterase Small (NEG) Urine RBC 0 /HPF (0-2) Urine WBC 1-4 /HPF (0-4) Urine Squamous Epithelial Cells Few /LPF Urine Bacteria Few /HPF (0-FEW) Urine Mucus Marked /LPF VTE Prophylaxis Ordered VTE Prophylaxis Devices: Yes VTE Pharmacological Prophylaxi: Yes Assessment/Plan Assessment/Plan RLQ abd pain with N/V. 2/2 acute appendicitis? ct neg tho morbid obesity syncope, vasovagal with abd pain? plan: fu with sx npo ivf pain control labs tmr dvt ppx add cipro and flagyl for now WILFRED CHILDS MD Sep 29, 2016 11:49
[2016-09-29] MEDS: IV NORMAL SALINE 1000ML BAG 1,000 ML IV SCH ×2 (12:44→20:25)
[2016-09-29] MEDS: CIPROFLOXACIN 400MG PREMIX 200 ML IV SCH ×2 (14:25→21:49)
[2016-09-29] MEDS: HEPARIN PF for SUB-Q USE 5,000 UNIT/0.5 ML VIAL. SQ SCH ×2 (14:32→21:55)
[2016-09-30 02:43] VITALS: BP 139/62
[2016-09-30] MEDS: HEPARIN PF for SUB-Q USE 5,000 UNIT/0.5 ML VIAL. SQ SCH (06:00)
[2016-09-30 06:23] LABS: BASO % 1 % (0-3); EOS % 5 % (0-3); HEMATOCRIT 29.1 % (36.0-47.0); HEMOGLOBIN 9.4 g/dL (12.0-15.5); LYMPH # 1.7 x10^3/uL (1.0-4.8); LYMPH % 31 % (24-48); MEAN CORPUSCULAR HEMOGLOBIN 24 pg (25-35); MEAN CORPUSCULAR HGB CONC 32 g/dL (31-37); MEAN CORPUSCULAR VOLUME 73 fL (79-100); MONO % 8 % (0-9); NEUT % 56 % (31-73); PLATELET COUNT 240 x10^3/uL (140-400); RED BLOOD COUNT 4.01 x10^6/uL (3.50-5.40); RED CELL DISTRIBUTION WIDTH 20.4 % (11.5-14.5); WHITE BLOOD COUNT 5.4 x10^3/uL (4.0-11.0)
[2016-09-30 06:38] LABS: % SAT IRON 10 % (15-34); IRON,SERUM 32 ug/dL (50-170)
[2016-09-30 06:49] LABS: CALCIUM 8.3 mg/dL (8.5-10.1); CREATININE 1.2 mg/dL (0.6-1.0); GFR 67.4; POTASSIUM 3.8 mmol/L (3.5-5.1)
[2016-09-30 07:00] VITALS: BP 137/86
--- NOTE | 2016-09-30 08:41 | PDOC3 ---
Discharge Summary Visit Information Date of Admission: Sep 29, 2016 Date of Discharge: Sep 30, 2016 Admitting Diagnosis Comment: ABd pain, etiology undetermined, no appy Final Diagnosis Problems Medical Problems: (1) Abdominal pain Status: Acute (2) Elevated WBC count Status: Acute (3) Nausea & vomiting Status: Acute Brief Hospital Course Allergies Allergies Coded Allergies Type Severity Reaction Last Updated Verified Penicillins Allergy Intermediate 09/28/16 Yes Vital Signs Vital Signs Date Time Temp Pulse Resp B/P (MAP) Pulse Ox O2 Delivery O2 Flow Rate FiO2 09/30/16 07:00 97.9 77 17 137/86 (103) 97 Room Air 97.9 Lab Results Laboratory Tests Test 09/28/16 21:06 09/28/16 21:33 09/28/16 21:47 09/29/16 05:30 Bedside Urine HCG, Qualitative Hcg negative (Negative) White Blood Count 15.4 x10^3/uL (4.0-11.0) 11.2 x10^3/uL (4.0-11.0) Red Blood Count 4.64 x10^6/uL (3.50-5.40) 4.10 x10^6/uL (3.50-5.40) Hemoglobin 10.7 g/dL (12.0-15.5) 9.5 g/dL (12.0-15.5) Hematocrit 34.6 % (36.0-47.0) 30.6 % (36.0-47.0) Mean Corpuscular Volume 75 fL (79-100) 75 fL (79-100) Mean Corpuscular Hemoglobin 23 pg (25-35) 23 pg (25-35) Mean Corpuscular Hemoglobin Concent 31 g/dL (31-37) 31 g/dL (31-37) Red Cell Distribution Width 20.4 % (11.5-14.5) 20.6 % (11.5-14.5) Platelet Count 271 x10^3/uL (140-400) 251 x10^3/uL (140-400) Neutrophils (%) (Auto) 88 % (31-73) 78 % (31-73) Lymphocytes (%) (Auto) 6 % (24-48) 15 % (24-48) Monocytes (%) (Auto) 4 % (0-9) 6 % (0-9) Eosinophils (%) (Auto) 2 % (0-3) 2 % (0-3) Basophils (%) (Auto) 0 % (0-3) 0 % (0-3) Neutrophils # (Auto) 13.6 x10^3uL (1.8-7.7) 8.7 x10^3uL (1.8-7.7) Lymphocytes # (Auto) 0.9 x10^3/uL (1.0-4.8) 1.7 x10^3/uL (1.0-4.8) Monocytes # (Auto) 0.7 x10^3/uL (0.0-1.1) 0.6 x10^3/uL (0.0-1.1) Eosinophils # (Auto) 0.2 x10^3/uL (0.0-0.7) 0.2 x10^3/uL (0.0-0.7) Basophils # (Auto) 0.0 x10^3/uL (0.0-0.2) 0.0 x10^3/uL (0.0-0.2) Segmented Neutrophils % 69 % (35-66) Band Neutrophils % 11 % (0-9) Lymphocytes % 12 % (24-48) Monocytes % 5 % (0-10) Eosinophils % 2 % (0-5) Basophils % 1 % (0-3) Platelet Estimate Adequate (ADEQUATE) Hypochromasia Slight Poikilocytosis Slight Anisocytosis Slight Microcytosis Slight Ovalocytes Few D-Dimer (Melissa) 0.29 ug/mlFEU (0.00-0.50) Sodium Level 140 mmol/L (136-145) Potassium Level 4.2 mmol/L (3.5-5.1) Chloride Level 104 mmol/L (98-107) Carbon Dioxide Level 26 mmol/L (21-32) Anion Gap 10 (6-14) Blood Urea Nitrogen 11 mg/dL (7-20) Creatinine 1.3 mg/dL (0.6-1.0) Estimated GFR (Cockcroft-Gault) 50.8 BUN/Creatinine Ratio 8 (6-20) Glucose Level 134 mg/dL (70-99) Calcium Level 8.8 mg/dL (8.5-10.1) Total Bilirubin 0.2 mg/dL (0.2-1.0) Aspartate Amino Transf (AST/SGOT) 18 U/L (15-37) Alanine Aminotransferase (ALT/SGPT) 17 U/L (14-59) Alkaline Phosphatase 81 U/L (46-116) Creatine Kinase 239 U/L (26-192) Creatine Kinase MB (Mass) < 0.5 ng/mL (0.0-3.6) Creatine Kinase MB Relative Index 0.2 % (0-4) Troponin I Quantitative < 0.017 ng/mL (0.000-0.055) Total Protein 7.8 g/dL (6.4-8.2) Albumin 3.2 g/dL (3.4-5.0) Albumin/Globulin Ratio 0.7 (1.0-1.7) Lipase 79 U/L (73-393) Urine Collection Type Unknown Urine Color Yellow Urine Clarity Clear Urine pH 5.0 Urine Specific [place] 1.020 Urine Protein Negative mg/dL (NEG-TRACE) Urine Glucose (UA) Negative mg/dL (NEG) Urine Ketones (Stick) Negative mg/dL (NEG) Urine Blood Negative (NEG) Urine Nitrite Negative (NEG) Urine Bilirubin Negative (NEG) Urine Urobilinogen Dipstick 0.2 mg/dL (0.2 mg/dL) Urine Leukocyte Esterase Small (NEG) Urine RBC 0 /HPF (0-2) Urine WBC 1-4 /HPF (0-4) Urine Squamous Epithelial Cells Few /LPF Urine Bacteria Few /HPF (0-FEW) Urine Mucus Marked /LPF Test 09/30/16 04:30 White Blood Count 5.4 x10^3/uL (4.0-11.0) Red Blood Count 4.01 x10^6/uL (3.50-5.40) Hemoglobin 9.4 g/dL (12.0-15.5) Hematocrit 29.1 % (36.0-47.0) Mean Corpuscular Volume 73 fL (79-100) Mean Corpuscular Hemoglobin 24 pg (25-35) Mean Corpuscular Hemoglobin Concent 32 g/dL (31-37) Red Cell Distribution Width 20.4 % (11.5-14.5) Platelet Count 240 x10^3/uL (140-400) Neutrophils (%) (Auto) 56 % (31-73) Lymphocytes (%) (Auto) 31 % (24-48) Monocytes (%) (Auto) 8 % (0-9) Eosinophils (%) (Auto) 5 % (0-3) Basophils (%) (Auto) 1 % (0-3) Neutrophils # (Auto) 3.0 x10^3uL (1.8-7.7) Lymphocytes # (Auto) 1.7 x10^3/uL (1.0-4.8) Monocytes # (Auto) 0.5 x10^3/uL (0.0-1.1) Eosinophils # (Auto) 0.3 x10^3/uL (0.0-0.7) Basophils # (Auto) 0.0 x10^3/uL (0.0-0.2) Sodium Level 140 mmol/L (136-145) Potassium Level 3.8 mmol/L (3.5-5.1) Chloride Level 105 mmol/L (98-107) Carbon Dioxide Level 31 mmol/L (21-32) Anion Gap 4 (6-14) Blood Urea Nitrogen 8 mg/dL (7-20) Creatinine 1.2 mg/dL (0.6-1.0) Estimated GFR (Cockcroft-Gault) 67.4 Glucose Level 83 mg/dL (70-99) Calcium Level 8.3 mg/dL (8.5-10.1) Iron Level 32 ug/dL (50-170) Total Iron Binding Capacity 307 ug/dL (250-450) Iron Saturation 10 % (15-34) Ferritin 12 ng/mL (8-252) Laboratory Tests Test 09/30/16 04:30 White Blood Count 5.4 x10^3/uL (4.0-11.0) Red Blood Count 4.01 x10^6/uL (3.50-5.40) Hemoglobin 9.4 g/dL (12.0-15.5) Hematocrit 29.1 % (36.0-47.0) Mean Corpuscular Volume 73 fL (79-100) Mean Corpuscular Hemoglobin 24 pg (25-35) Mean Corpuscular Hemoglobin Concent 32 g/dL (31-37) Red Cell Distribution Width 20.4 % (11.5-14.5) Platelet Count 240 x10^3/uL (140-400) Neutrophils (%) (Auto) 56 % (31-73) Lymphocytes (%) (Auto) 31 % (24-48) Monocytes (%) (Auto) 8 % (0-9) Eosinophils (%) (Auto) 5 % (0-3) Basophils (%) (Auto) 1 % (0-3) Neutrophils # (Auto) 3.0 x10^3uL (1.8-7.7) Lymphocytes # (Auto) 1.7 x10^3/uL (1.0-4.8) Monocytes # (Auto) 0.5 x10^3/uL (0.0-1.1) Eosinophils # (Auto) 0.3 x10^3/uL (0.0-0.7) Basophils # (Auto) 0.0 x10^3/uL (0.0-0.2) Sodium Level 140 mmol/L (136-145) Potassium Level 3.8 mmol/L (3.5-5.1) Chloride Level 105 mmol/L (98-107) Carbon Dioxide Level 31 mmol/L (21-32) Anion Gap 4 (6-14) Blood Urea Nitrogen 8 mg/dL (7-20) Creatinine 1.2 mg/dL (0.6-1.0) Estimated GFR (Cockcroft-Gault) 67.4 Glucose Level 83 mg/dL (70-99) Calcium Level 8.3 mg/dL (8.5-10.1) Iron Level 32 ug/dL (50-170) Total Iron Binding Capacity 307 ug/dL (250-450) Iron Saturation 10 % (15-34) Ferritin 12 ng/mL (8-252) Brief Hospital Course Ms. Obregon is a 21 old AA female with no signif passed out, found to have abd pain, CTabd neg, WBC 15 on admit, normalized,. Clean urine, Thoughts of appy, GS consulted, PE not consistent with hot appendix, OBS overnight, pain gone, tolerating liquid diet. Home today, counselled if sxs recur and worse could be appy, go to ER or urgent care. Understands Pt seen and examined Dc 32 mins > 50% counselling Discharge Information Condition at Discharge: Improved, Stable Follow Up: Weeks (Urgent care or ER if sxs recur) Disposition/Orders: D/C to Home ANABELLA WHYTE MD Sep 30, 2016 08:41
[2016-09-30] MEDS: CIPROFLOXACIN 400MG PREMIX 200 ML IV SCH (09:14)
[2016-09-30 11:00] VITALS: BP 132/79
[2016-10-01 09:10] LABS: FOLATE 8.42 ng/ml (3.2-20.0)
== END 2016-09-30 12:15 | disposition home or self-care (01) ==
LOC: ER 21:23 → 5 SOUTH 23:45
PROVIDERS: ADMIT Internal Medicine; ATTEND Internal Medicine
DX: R10.31 Right lower quadrant pain (principal); R11.2 Nausea with vomiting, unspecified; D72.829 Elevated white blood cell count, unspecified; E66.01 Morbid (severe) obesity due to excess calories; R55 Syncope and collapse; Z80.9 Family history of malignant neoplasm, unspecified
CPT/HCPCS: 36415; 74177; 80048; 80053; 81001; 81025; 82553; 82607; 82728; 82746; 83540; 83550; 83690; 84484; 85007; 85027; 85379; 87086; 93005; 96361; 96365; 96366; 96367; 96372; 96375; 96376; 99285; G0378; J0744; J1644; J2270; J2405; J3010; J3490; J7030; Q9967; G0379